=== PATIENT | female | born 1950 | race Caucasian/White ===

== ENCOUNTER 2020-02-18 15:48 | Emergency (ER) | payer MEDICARE ==
[2020-02-18] MEDS ORDERED: SODIUM CHLORIDE 0.9% 1,000 ML IV STA (15:52)
[2020-02-18 15:57] VITALS: RESP 18
--- NOTE | 2020-02-18 16:19 | ED ---
Syncope HPI - General Chief Complaint: Syncope Stated Complaint: Syncope Time Seen by Provider: 02/18/20 15:52 Source: patient, EMS, RN notes reviewed, old records reviewed Mode of arrival: EMS Limitations: no limitations - History of Present Illness Initial Comments: This is a 69-year-old female presents with for syncopal event while at lunch today. There having a 5 day maybe 1 or 2 beers a piece drove [place] and patient after or near the end of lunch became moderately mildly unresponsive no change of color she did not lose her posture tone. She was then transferred by EMS to the hospital and arousable hospitalization asymptomatic with no chest pain shortness breath or abdominal MD Complaint: loss of consciousness -: minutes(s) Prodromal Symptoms: none -: minutes(s) Witnessed: yes - by bystander Injuries Sustained Associated with Event: None Current Symptoms: none Context: at rest Treatments Prior to Arrival: none - Related Data Allergies Allergy/AdvReac Type Severity Reaction Status Date / Time Sulfa (Sulfonamide Allergy Anaphylaxis Verified 02/18/20 15:57 Antibiotics) Review of Systems ROS Statement: Those systems with pertinent positive or pertinent negative responses have been documented in the HPI. ROS Other: All systems not noted in ROS Statement are negative. Past Medical History Past Medical History: Asthma, Hyperlipidemia, Thyroid Disorder History of Any Multi-Drug Resistant Organisms: None Reported Past Surgical History: Appendectomy, Back Surgery, Bladder Surgery, Section, Hysterectomy, Orthopedic Surgery Past Psychological History: No Psychological Hx Reported Smoking Status: Former smoker Past Alcohol Use History: Occasional Past Drug Use History: Marijuana General Exam Limitations: no limitations General appearance: alert, in no apparent distress Head exam: Present: atraumatic, normocephalic, normal inspection Eye exam: Present: normal appearance, PERRL, EOMI. Absent: scleral icterus, conjunctival injection, periorbital swelling ENT exam: Present: normal exam, mucous membranes moist Neck exam: Present: normal inspection. Absent: tenderness, meningismus, lym phadenopathy Respiratory exam: Present: normal lung sounds bilaterally. Absent: respiratory distress, wheezes, rales, rhonchi, stridor Cardiovascular Exam: Present: regular rate, normal rhythm, normal heart sounds. Absent: systolic murmur, diastolic murmur, rubs, gallop, clicks GI/Abdominal exam: Present: soft, normal bowel sounds. Absent: distended, tenderness, guarding, rebound, rigid Extremities exam: Present: normal inspection, full ROM, normal capillary refill. Absent: tenderness, pedal edema, joint swelling, calf tenderness Back exam: Present: normal inspection Neurological exam: Present: alert, oriented X3, CN II-XII intact Psychiatric exam: Present: normal affect, normal mood Skin exam: Present: warm, dry, intact, normal color. Absent: rash Course Vital Signs 02/18/20 02/18/20 15:51 18:21 Temperature 97.6 F Pulse Rate 72 70 Respiratory 18 18 Rate Blood Pressure 117/62 139/70 O2 Sat by Pulse 100 97 Oximetry - Reevaluation(s) Reevaluation #1: 02/18/20 19:22 Medical records reviewed Reevaluation #2: 02/18/20 19:22 Patient has no recurrent syncopal episodes here in the ER remains a symptomatically throughout stay with no headache chest pain shortness of breath or abdominal pain EKG Findings - EKG Comments: EKG Findings:: EKG is sinus rhythm 71. UT 164 QRS 471 Qtc 471 Medical Decision Making - Medical Decision Making This is a 69-year-old female of a near syncopal event third time ALLERGY symptoms happened prior intervention did have prolonged hospital stay with testing, a symptomatically on arrival to ER patient will be discharged home - Lab Data Result diagrams: 02/18/20 16:32 02/18/20 16:32 Lab Results 02/18/20 02/18/20 02/18/20 Range/Units 16:32 16:32 16:32 WBC 5.4 (3.8-10.6) k/uL RBC 4.21 (3.80-5.40) m/uL Hgb 13.0 (11.4-16.0) gm/dL Hct 40.1 (34.0-46.0) % MCV 95.3 (80.0-100.0) fL MCH 30.9 (25.0-35.0) pg MCHC 32.4 (31.0-37.0) g/dL RDW 12.5 (11.5-15.5) % Plt Count 127 L (150-450) k/uL Neutrophils % 63 % Lymphocytes % 25 % Monocytes % 6 % Eosinophils % 3 % Basophils % 1 % Neutrophils # 3.4 (1.3-7.7) k/uL Lymphocytes # 1.4 (1.0-4.8) k/uL Monocytes # 0.4 (0-1.0) k/uL Eosinophils # 0.1 (0-0.7) k/uL Basophils # 0.0 (0-0.2) k/uL Sodium 135 L (137-145) mmol/L Potassium 4.3 (3.5-5.1) mmol/L Chloride 103 (98-107) mmol/L Carbon Dioxide 23 (22-30) mmol/L Anion Gap 9 mmol/L BUN 23 H (7-17) mg/dL Creatinine 0.88 (0.52-1.04) mg/dL Est GFR (CKD-EPI)AfAm 79 (>60 ml/min/1.73 sqM) Est GFR (CKD-EPI)NonAf 69 (>60 ml/min/1.73 sqM) Glucose 99 (74-99) mg/dL Plasma Lactic Acid Stephon 2.1 H* (0.7-2.0) mmol/L Calcium 8.8 (8.4-10.2) mg/dL Phosphorus 4.4 (2.5-4.5) mg/dL Magnesium 1.8 (1.6-2.3) mg/dL Total Bilirubin 0.6 (0.2-1.3) mg/dL AST 42 H (14-36) U/L ALT 18 (4-34) U/L Alkaline Phosphatase 54 (38-126) U/L Creatine Kinase 80 (30-135) U/L Troponin I (0.000-0.034) ng/mL NT-Pro-B Natriuret Pep pg/mL Total Protein 6.3 (6.3-8.2) g/dL Albumin 3.9 (3.5-5.0) g/dL 02/18/20 02/18/20 Range/Units 16:32 16:32 WBC (3.8-10.6) k/uL RBC (3.80-5.40) m/uL Hgb (11.4-16.0) gm/dL Hct (34.0-46.0) % MCV (80.0-100.0) fL MCH (25.0-35.0) pg MCHC (31.0-37.0) g/dL RDW (11.5-15.5) % Plt Count (150-450) k/uL Neutrophils % % Lymphocytes % % Monocytes % % Eosinophils % % Basophils % % Neutrophils # (1.3-7.7) k/uL Lymphocytes # (1.0-4.8) k/uL Monocytes # (0-1.0) k/uL Eosinophils # (0-0.7) k/uL Basophils # (0-0.2) k/uL Sodium (137-145) mmol/L Potassium (3.5-5.1) mmol/L Chloride (98-107) mmol/L Carbon Dioxide (22-30) mmol/L Anion Gap mmol/L BUN (7-17) mg/dL Creatinine (0.52-1.04) mg/dL Est GFR (CKD-EPI)AfAm (>60 ml/min/1.73 sqM) Est GFR (CKD-EPI)NonAf (>60 ml/min/1.73 sqM) Glucose (74-99) mg/dL Plasma Lactic Acid Stephon (0.7-2.0) mmol/L Calcium (8.4-10.2) mg/dL Phosphorus (2.5-4.5) mg/dL Magnesium (1.6-2.3) mg/dL Total Bilirubin (0.2-1.3) mg/dL AST (14-36) U/L ALT (4-34) U/L Alkaline Phosphatase (38-126) U/L Creatine Kinase (30-135) U/L Troponin I <0.012 (0.000-0.034) ng/mL NT-Pro-B Natriuret Pep 129 pg/mL Total Protein (6.3-8.2) g/dL Albumin (3.5-5.0) g/dL Disposition Clinical Impression: Vasovagal syncope Disposition: HOME SELF-CARE Condition: Good Instructions (If sedation given, give patient instructions): Syncope in Older Adults (ED) Is patient prescribed a controlled substance at d/c from ED?: No Referrals: Cullen Cormier MD [Primary Care Provider] - 1-2 days
--- NOTE | 2020-02-18 16:47 | XR ---
EXAMINATION TYPE: XR chest 2V DATE OF EXAM: 02/18/2020 COMPARISON: NONE HISTORY: Weakness TECHNIQUE: 2 views FINDINGS: There is some linear density at the left lung base. Heart is normal. There are no hilar mas ses. Mediastinum is normal. Bony thorax is intact. IMPRESSION: There is some mild atelectasis left lung base. Normal heart.
[2020-02-18 17:17] LABS: Basophils % (A) 1 %; Eosinophils # (A) 0.1 k/uL (0-0.7); Eosinophils % (A) 3 %; HCT 40.1 % (34.0-46.0); Lymphocytes # (A) 1.4 k/uL (1.0-4.8); Lymphocytes % (A) 25 %; MCH 30.9 pg (25.0-35.0); MCHC 32.4 g/dL (31.0-37.0); MCV 95.3 fL (80.0-100.0); Mean Platelet Volume 8.4; Monocytes # (A) 0.4 k/uL (0-1.0); Monocytes % (A) 6 %; Neutrophils # (A) 3.4 k/uL (1.3-7.7); Neutrophils % (A) 63 %; Platelet Count 127 k/uL (150-450); RBC 4.21 m/uL (3.80-5.40); RDW 12.5 % (11.5-15.5); WBC 5.4 k/uL (3.8-10.6)
[2020-02-18 17:19] LABS: Albumin 3.9 g/dL (3.5-5.0); Calcium 8.8 mg/dL (8.4-10.2); Magnesium 1.8 mg/dL (1.6-2.3); Phosphorus 4.4 mg/dL (2.5-4.5); Potassium 4.3 mmol/L (3.5-5.1); Total Bilirubin 0.6 mg/dL (0.2-1.3); Total Protein 6.3 g/dL (6.3-8.2)
[2020-02-18 18:22] VITALS: BP 139/70; PULSE 70
[2020-02-18 19:23] VITALS: TEMP 98.3
== END 2020-02-18 19:23 | disposition home or self-care (01) ==
LOC: EC 15:48
DX: R55 Syncope and collapse (principal); Z88.2 Allergy status to sulfonamides; Z87.891 Personal history of nicotine dependence
CPT/HCPCS: 36415; 71046; 80053; 82550; 83605; 83735; 83880; 84100; 84484; 85025; 93005; 99285

== ENCOUNTER → 2024-04-05 | Outpatient (CLI) | payer MEDICARE ==
[2024-04-05 13:26] LABS: Partial Thromboplastin Time 21.7 sec (22.0-30.0); Prothrombin Time 10.6 sec (10.0-12.5)
[2024-04-05 20:24] LABS: HCT 45.7 % (37.2-46.3); HGB 14.6 g/dL (12.0-15.0); MCH 30.9 pg (27.0-32.0); MCHC 31.9 g/dL (32.0-37.0); MCV 96.8 FL (80.0-97.0); Mean Platelet Volume 10.5 FL (9.5-12.2); NRBC Per 100 WBC 0 X 10*3/uL (0.00-0.01); Platelet Count 349 X 10*3/uL (140-440); RBC 4.72 X 10*6/uL (4.10-5.20); RDW 12.9 % (11.5-14.5); WBC 10.73 X 10*3/uL (4.50-10.00)
[2024-04-05 22:21] LABS: ALT 23 U/L (8-44); AST 17 U/L (13-35); Albumin 4.1 g/dL (3.8-4.9); Albumin/Globulin Ratio 1.78 Ratio (1.60-3.17); Alkaline Phosphatase 67 U/L (41-126); BUN/Creat Ratio 26.78 Ratio (12.00-20.00); Blood Urea Nitrogen 24.1 mg/dL (9.0-27.0); Calcium 9.5 mg/dL (8.7-10.3); Carbon Dioxide 25.4 mmol/L (21.6-31.8); Chloride 100 mmol/L (96-109); Globulin 2.3 g/dL (1.6-3.3); Glucose 102 mg/dL (70-110); Potassium 4.3 mmol/L (3.5-5.5); Sodium 138 mmol/L (135-145); Total Bilirubin 0.3 mg/dL (0.3-1.2); Total Protein 6.4 g/dL (6.2-8.2)
== END | disposition home or self-care (01) ==
LOC: LABWHC1 12:03
PROVIDERS: ATTEND Orthopaedic Surgery
DX: Z01.818 Encounter for other preprocedural examination (principal); Z22.322 Carrier or suspected carrier of Methicillin resistant Staphylococcus aureus; M16.11 Unilateral primary osteoarthritis, right hip
CPT/HCPCS: 36415; 80053; 83036; 85027; 85610; 85730; 86850; 86900; 86901; 87070; 93005

== ENCOUNTER 2024-04-13 10:48 | Day surgery (SDC) | payer MEDICARE ==
[2024-04-07 10:10] VITALS: BMI 25.0
[~2024-04-13 10:48] MED LIST: ONDANSETRON 4 MG/2 ML VIAL IVP PRN; TRANEXAMIC 1,000 MG/100ML-NACL 1,000 MG in SALINE 1 100ML.BAG IV PRN; TRANEXAMIC 1,000 MG/100ML-NACL 1,000 MG in SALINE 1 100ML.BAG IVPB PRN
[2024-04-13] MEDS: ACETAMINOPHEN TAB 500 MG TAB PO PRN (11:22)
[2024-04-13] MEDS: DOCUSATE 100 MG CAP PO PRN (11:22)
[2024-04-13] MEDS: oxyCODONE ER 10 MG TAB.ER.12H PO PRN (11:23)
[2024-04-13] MEDS: LACTATED RINGERS 1,000 ML IV SCH (11:45)
[2024-04-13] MEDS: KETOROLAC 15 MG/ML 1 ML VIAL IVP PRN (11:46)
[2024-04-13] MEDS: DEXAMETHASONE SOD PHOSPHATE 10 MG/ML 1 ML VIAL IV PRN (11:46)
[2024-04-13] MEDS: FAMOTIDINE 20 MG/2 ML VIAL IVP PRN (11:46)
[2024-04-13] MEDS: ONDANSETRON 4 MG/2 ML VIAL IVP ONE (11:46)
[2024-04-13] MEDS: DEXAMETHASONE SOD PHOSPHATE 4 MG/ML 1 ML VIAL IV ONE (11:47)
[2024-04-13] MEDS: IV FLUID CONTINUATION 1,000 ML IV ONE (11:55)
[2024-04-13] MEDS: MIDAZOLAM 2 MG/2 ML VIAL IV ONE (12:08)
[2024-04-13] MEDS: fentaNYL (PF) 50 MCG/ML 2 ML AMP IVP STA (12:16)
[2024-04-13] MEDS ORDERED: ROPIVACAINE 5 MG/ML 30 ML VIAL ONE (13:12)
[2024-04-13] MEDS ORDERED: fentaNYL (PF) 50 MCG/ML 2 ML AMP ONE (13:12)
[2024-04-13] MEDS ORDERED: SUCCINYLCHOLINE CHLORIDE 200 MG/10 ML VIAL IV ONE (13:12)
[2024-04-13] MEDS ORDERED: PHENYLEPHRINE 10 MG/ML VIAL ONE (13:12)
[2024-04-13] MEDS ORDERED: PROPOFOL 10 MG/ML 20 ML VIAL IV ONE (13:12)
[2024-04-13] MEDS ORDERED: ePHEDrine 50 MG/ML 1 ML VIAL ONE (13:12)
[2024-04-13] MEDS ORDERED: TRANEXAMIC 1,000 MG/100ML-NACL PREMIX BAG ONE (13:12)
[2024-04-13] MEDS ORDERED: LIDOCAINE 1% INJ 10MG/ML (20 ML MDV) ONE (13:12)
[2024-04-13] MEDS ORDERED: GLYCOPYRROLATE 0.2 MG/ML 2 ML VIAL ONE (13:12)
[2024-04-13] MEDS ORDERED: ROCURONIUM 10 MG/ML (5 ML VIAL) IV ONE (13:12)
[2024-04-13] MEDS ORDERED: NEOSTIGMINE 1 MG/ML 10 ML VIAL ONE (13:12)
[2024-04-13] MEDS ORDERED: MIDAZOLAM 2 MG/2 ML VIAL ONE (13:12)
[2024-04-13] MEDS: ROPIVACAINE/EPI/CLONIDINE/KET 50 ML SYRINGE MISCELLANE PRN (13:53)
[2024-04-13] MEDS: LACTATED RINGERS 1,000 ML IV ONE (15:02)
--- NOTE | 2024-04-13 15:04 | P.OP ---
Date of Procedure: 04/13/24 Preoperative Diagnosis: Severe right hip osteoarthritis Postoperative Diagnosis: Same Procedure(s) Performed: Right direct anterior total hip arthroplasty Implants: 1. Follansbee Trident II Acetabular Cup, Size #50 2. Osmin Insignia Size # 6 Femoral Stem, High Offset 3. Dual Mobility OD 38 mm, ID 28 mm, -2.7 mm neck Anesthesia: GETA, regional Surgeon: Jean Claude Hadley Dental Laboratory Worker #1: Jonathan Lyman Estimated Blood Loss (ml): 300 IV fluids (ml): 800 Pathology: none sent Condition: stable Disposition: PACU Indications for Procedure: I had a long discussion with the patient in the office on the potential risks and complications of an elective total hip replacement through a direct anterior approach. Risks discussed include, but are certainly not limited to, risks from anesthesia, superficial infection requiring local wound care or antibiotics, deep dale-prosthetic joint infection and the treatment required to eradicate infection, intraoperative fracture, postoperative periprosthetic fracture, damage to local blood vessels or nerves particularly the lateral femoral cutaneous nerve, delayed wound healing requiring local wound care or possibly surgical debridement, hip dislocation, leg length discrepancy, soft tissue irritation around the total hip implant such as iliopsoas tendinitis or trochanteric bursitis, wear and osteolysis from the implants, squeaking or audible noises, groin pain, thigh pain, heterotopic ossification, stiffness, aseptic loosening of the implants, dissatisfaction with surgical outcome, need for revision surgery, DVT, PE, swelling of the operative extremity, acute coronary event, stroke, failure to thrive, and possibly loss of life or limb. The patient understands that while these are the most common complications after an elective hip replacement there are certainly other less common complications possible. They were given ample time to ask questions regarding the potential complications of a hip replacement. Following our discussion the patient p rovided their verbal and written consent to go forward with an elective total hip replacement. Description of Procedure: The patient was identified in the preoperative holding area and the correct hip was marked with my initials. I reviewed the procedure and consent with the patient. All of their questions were answered. The patient was then brought back into the operating room by anesthesia. While on the [facility] anesthesia was administered by the anesthesia team. Preoperative antibiotics and tranexamic acid were also given. After the patient was under anesthesia I examined their ankles to determine their preoperative leg length discrepancy. The skin over the anterior aspect of the hip was shaved to remove hair over the site of planned incision. Both feet and ankles were padded with webril and boots for the Hancock were applied. The patient was then carefully transferred onto the Hancock table. A perineal post was immediately placed. The arms were placed on arm holders and were well-padded. Both boots were secured to the spars on the Hancock table. The patient was positioned so that the pelvis was centered over the post. Nonsterile drapes were applied. A timeout was performed identifying the correct patient, operative extremity, and procedure. At this point fluoroscopy was brought in to take preoperative images of the pelvis and operative hip. U sing the standing AP pelvis from the office as a template, a comparable image was obtained with fluoroscopy. A metallic bar was used to create a bi-ischial line for use as a reference to leg length adjustments during the procedure. Global offset was also measured on both the operative and nonoperative leg. Fluoroscopy was then brought out and a pre-scrub using a chlorhexidine scrub brush was performed. The operative limb was then prepped and draped in the standard sterile fashion. An anterior longitudinal incision was made lateral and distal to the ASIS. The skin and subcutaneous tissues were incised sharply. The underlying tensor fascia was identified and incised in its midportion. The fascia was dissected free from the underlying muscle and the muscle belly was retracted. A blunt tipped cobra retractor was placed over the superior neck under the muscle fibers of the gluteus minimus. The deep enveloping fascia of the tensor was incised. The anterior leash of vessels were then identified and cauterized. The fascia between the rectus and the capsule was then incised and the pre-capsular fat was excised. A second Cobra was placed inferior to the neck. The interval between the rectus and iliocapsularis and the hip capsule was developed and a retractor was placed carefully over the anterior rim of the acetabulum. A T-shaped anterior capsulotomy was performed. The superior capsular leaflet was left in place in the inferior capsular flap was excised. The Cobra retractors were placed intracapsularly. We then made a femoral neck osteotomy according to preoperative and intraoperative templating and confirmed the level of the osteotomy using fluoroscopic imaging. The femoral head was removed, passed off to the back table, and sized. The superior capsular flap was excised. Retractors were placed circumferentially exposing the acetabulum. We then circumferentially debrided the acetabulum free of labrum and osteophytes. The pulvinar was removed to fully visualize the cotyloid fossa. We then sequentially reamed to achieve peripheral fit and excellent bleeding subchondral bone. The socket was thoroughly irrigated. The acetabular component was impacted into the appropriate position using fluoroscopy to guide version, inclination, and depth of insertion taking care to have a comparable image of the AP pelvis to the standing image taken in the office. An excellent press-fit was achieved and final position was confirmed using fluoroscopy. The press fit was augmented with bony cancellus dome screws. The liner was then impacted into the socket. Attention was then turned to the femur. The remnant dorsal lateral capsule was excised. The short external rotators were visible and protected. A bone hook was used to confirm appropriate translation of the trochanter away from the acetabulum. The leg was then extended and adducted and the bone hook was used to elevate the femur for broaching. A box osteotome and blunt tipped canal sound was then utilized to gain access to the femoral canal. We then sequentially broached the femur in appropriate anteversion until excellent torsional stability was achieved. The neck cut was brought flush to the trial broach with a calcar planar. A trial neck and head were then placed onto the broach and the hip was atraumatically reduced under direct visualization. External rotation to 90 was performed to assess stability. Fluoroscopy was brought in. An AP and lateral fluoroscopic image of the proximal femur was obtained to assess position and fill of the trial broach. An AP of the pelvis w as then obtained and matched to the preoperative image taken. A bi-ischial bar was then placed and measurements were taken to assess changes in length and offset. The hip was then carefully dislocated, the proximal femur was exposed, and the trial implants were removed. The wound and proximal femur was thoroughly irrigated using sterile saline and pulsatile lavage. The final femoral implant was dispensed and gently tapped into place generating an excellent press-fit. The trunnion was cleansed and the final head was tapped into place to engage the Scales taper. The acetabulum was irrigated and visualized to be free of debris. The hip was carefully reduced. Stability was checked clinically with external rotation to 90 and there was no evidence of instability. Final fluoroscopic images were taken. The wound was then thoroughly irrigated and soaked with a dilute Betadine rinse for 3 minutes. 3 L of sterile saline was irrigated through the wound using pulsatile lavage. Local anesthetic cocktail was injected into the soft tissues around the surgical field. The wound was then closed in layers. A sterile dressing was placed over the surgical incision. The drapes were taken down and the patient was carefully transferred off of the Hancock table. Following removal of the boots the leg lengths felt acceptable. The patient was then taken to recovery room having tolerated the procedure well. Jonathan Lyman PA-C was required as a skilled assistant customer service manager due to the complexity of surgery for patient positioning, draping, exposure, retraction, closure of wound and application of dressing. PLAN: The patient can weight-bear as tolerated on the operative extremity. DVT prophylaxis with aspirin 81 mg twice a day based on preoperative risk stratification. Physical therapy for gait training. Leave surgical dressing in place. Internal medicine for perioperative medical management.
[2024-04-13] MEDS ORDERED: ONDANSETRON 4 MG/2 ML VIAL IVP PRN (15:05)
[2024-04-13] MEDS ORDERED: HYDROmorphone 0.5 MG/0.5 ML SYRINGE IVP PRN ×2 (15:05)
[2024-04-13] MEDS ORDERED: hydrOXYzine pamoate 25 MG CAP PO PRN (15:05)
[2024-04-13] MEDS ORDERED: NALOXONE 0.4 MG/ML 1 ML VIAL IV PRN (15:05)
[2024-04-13] MEDS ORDERED: HYDROcodone/APAP 5-325MG 1 EACH TAB PO PRN (15:05)
[2024-04-13] MEDS ORDERED: MAGNESIUM HYDROXIDE 2,400 MG/30 ML CUP PO PRN (15:05)
--- NOTE | 2024-04-13 15:23 | FL ---
EXAMINATION TYPE: FL guidance operating room, XR Hip Limited RT DATE OF EXAM: 04/13/2024 3:14 PM COMPARISON: Pre Operative Images if available both CT/MRI or plain film CLINICAL INDICATION: Female, 73 years old with history of Rt Hip-Ant; TECHNIQUE: FL guidance operating room, XR Hip Limited RT, multiple fluoroscopic images provided for p rocedure. Total fluoroscopy time: 45.9 seconds Total submitted images to PACS: 9 DAP: 1.1651 mGym2 Gycm2 uGym2 cGycm2 or equivalent. FINDINGS: Fluoroscopic images during internal fixation/arthroplasty demonstrate fixation hardware in appropriat e position. Hardware appears intact. No immediate complication identified. IMPRESSION: 1. No evidence for intraoperative complication. 2. Please see the operative/procedural note for further details. [facility], , 04/13/2024 3:21 PM
[2024-04-13] MEDS: HYDROmorphone 0.5 MG/0.5 ML SYRINGE IVP PRN (15:39)
--- NOTE | 2024-04-13 16:06 | P.ANPRN ---
Procedure Note - Anesthesia - Nerve Block Performed Right Goetz Single Time Out Performed: Yes (1207) Date of Procedure: 04/13/24 Procedure Start Time: 12:08 Procedure Stop Time: 12:12 Location of Patient: PreOp Indication: Acute Post-Operative Pain, Requested by Surgeon Specifically requested for management of pain by DrVimal: Jean Claude Hadley Sedation Type: Sedate with meaningful contact maintained Preparation: Sterile Prep Position: Supine Catheter: None Needle Types: Pajunk Needle Gauge: 21 Ultrasound used to visualize needle placement: Yes Ultrasound used to observe medication spread: Yes Injectate: 0.5% Ropivacaine (see comment for volume) (30cc) Blood Aspirated: No Pain Paresthesia on Injection Noted: No Resistance on Injection: Normal Image Stored and Saved: Yes Events: Uneventful and Well Tolerated
[2024-04-13] MEDS: HYDROcodone/APAP 10-325MG 1 EACH TAB PO PRN (17:28)
[2024-04-13] MEDS: SODIUM CHLORIDE 0.9% 1,000 ML IV SCH (17:29)
--- NOTE | 2024-04-13 17:34 | P.CONS ---
History of Present Illness - Reason for Consult Consult date: 04/13/24 Medical Management Requesting physician: Jean Claude Hadley - History of Present Illness History of Presenting Illness: Patient is a very pleasant 73-year-old female with a past medical history of hypothyroidism, asthma, and osteoarthritis. She is currently admitted under orthopedic surgery team status post elective right total hip arthroplasty secondary to severe right hip osteoarthritis. Surgical procedure was completed by Dr. Hadley. We were consulted for medical management throughout hospitalization. Patient seen and fully evaluated in room 464. She currently reports controlled postoperative pain and denies having any postoperative nausea or vomiting. Patient reports urinating without any difficulties and postoperative period. She denies having any headache, lightheadedness, dizziness, chest pain, palpitations, shortness of breath, or experiencing any numbness or focal weakness. Patient does report feeling sleepy and states she does not really have an appetite, otherwise reports feeling much better than she expected. Review of systems: Pertinent positives and negatives as discussed in HPI, a complete review of systems was performed and all other systems are negative. Physical exam: Vital signs reviewed and stable. General: Nontoxic, no distress and appears stated age. Derm: Skin warm and dry, normal coloration for ethnicity. Head: Atraumatic, normocephalic and symmetric. Eyes: EOM's intact, no lid lag, and anicteric sclera Mouth: no lip lesions, mucus membranes moist Cardiovascular: regular rate and rhythm with normal S1S2, no murmur, positive posterior tibial pulses bilaterally, and cap refill < 2 seconds. Lungs: Respirations even, regular, and unlabored on room air. Lungs CTA bilaterally, no rhonchi, no rales, no wheezing, and no accessory muscle usage. Abdominal: soft, nontender to palpation, no guarding, no appreciable organomegaly Ext:: No gross muscle atrophy, no edema, no contractures. Movement and sensa tion intact. Postoperative dressing in place right hip. Neuro: Speech clear, face symmetrical and CN II-XII grossly intact with no noted focal neuro deficits Psych: Alert and oriented to person, place, time, and situation. Appropriate and pleasant affect. Assessment and Plan of Care: Status post right total hip arthroplasty Management per primary admitting orthopedic surgery team including DVT prophylaxis, pain management, wound/dressing management, weightbearing, and PT/OT. Currently DVT prophylaxis with aspirin 81 mg twice daily. Hypothyroidism Continue levothyroxine 88 mcg daily. Mild persistent asthma, controlled Continue Ventolin inhaler every 6 hours as needed for shortness of breath and/or wheezing. Encourage use of incentive spirometry 10-15 times hourly while awake. Data reviewed: Reviewed operative report. Vital signs reviewed. Blood pressure 102/58, heart rate 70, respiratory rate 17, temp 97.4 F, and SpO2 of 97% on room air. Reviewed preoperative labs. CBC revealed WBC count of 10.73, hemoglobin 14.6, platelet count of 349. BMP unremarkable with exception of a slightly elevated anion gap of 12.60. Hemoglobin A1c was 5.7%. Orders placed for postoperative labs including CBC, BMP, and magnesium. Will follow-up on these results and place additional orders as indicated based upon these findings. Thank you for allowing us to participate in the care of this pleasant patient. Do not hesitate to contact us with questions. Someone can be reached from the [facility] all hours of the day at [phone] or via [email or web address]. Patient was seen independently by Nurse Practitioner. This document was prepared using [employer] dictation software. Please allow for errors in filler block inserter remover while rare they do occur. Cedric Marshall NP rendered care for this patient independently, reviewed the findings and plan as documented in the note above. I did not physically speak w ith or examine the patient on this date. Past Medical History Past Medical History: Asthma, Hyperlipidemia, Thyroid Disorder History of Any Multi-Drug Resistant Organisms: MRSA Year Discovered:: 2008 MDRO Source:: left leg Past Surgical History: Appendectomy, Back Surgery, Bladder Surgery, Section, Hysterectomy, Orthopedic Surgery Additional Past Surgical History / Comment(s): neck and back fusion Past Anesthesia/Blood Transfusion Reactions: No Reported Reaction Past Psychological History: No Psychological Hx Reported Smoking Status: Former smoker Past Alcohol Use History: Rare Past Drug Use History: Marijuana Additional Drug Use History / Comment(s): instructed to refrain from use for 24 hours - Past Family History Mother Family Medical History: Cancer Additional Family Medical History / Comment(s): breast CA Medications and Allergies Home Medications Medication Instructions Recorded Confirmed Type Albuterol Inhaler [Ventolin Hfa 1 - 2 puff INHALATION Q6H PRN 04/07/24 04/13/24 History Inhaler] Levothyroxine Sodium [Synthroid] 88 mcg PO DAILY 04/07/24 04/13/24 History Aspirin 81 mg PO BID #60 tab 04/14/24 Rx Docusate [Colace] 100 mg PO BID #60 capsule 04/14/24 Rx HYDROcodone/APAP 5-325MG [Lagrange 5] 1 - 2 each PO Q6HR PRN #48 tab 04/14/24 Rx Omeprazole 20 mg PO DAILY #30 tab 04/14/24 Rx Ondansetron [Zofran] 4 mg PO Q6HR PRN #30 tab 04/14/24 Rx Allergies Allergy/AdvReac Type Severity Reaction Status Date / Time adhesive tape Allergy Unknown Verified 04/13/24 11:08 Sulfa (Sulfonamide Allergy Anaphylaxis Verified 04/13/24 11:08 Antibiotics) Physical Exam Vitals: Vital Signs Temp Pulse Pulse Resp BP BP Pulse Ox 04/13/24 16:25 76 16 116/54 99 04/13/24 16:10 76 16 109/53 98 04/13/24 15:55 78 16 149/67 94 L 04/13/24 15:40 87 16 143/65 100 04/13/24 15:25 96.9 F L 115 H 14 144/66 99 04/13/24 12:18 70 16 147/67 100 04/13/24 11:14 98.6 F 98 18 180/84 98 Intake and Output 04/13/24 04/13/24 04/13/24 06:59 14:59 22:59 Intake Total 1050 200 Output Total 200 Balance 1050 0 Intake: IV 1050 200 Output: Estimated Blood Loss 200 Other: Weight 69.8 kg 69.8 kg Results CBC & Chem 7: 04/14/24 04:04 04/14/24 04:04
[2024-04-13] MEDS: SENNOSIDES-DOCUSATE SODIUM 1 EACH TAB PO SCH (21:31)
[2024-04-13] MEDS: ASPIRIN 81 MG PO SCH (21:31)
[2024-04-14] MEDS: LEVOTHYROXINE 88 MCG TAB PO SCH (05:47)
--- NOTE | 2024-04-14 08:07 | P.DS ---
Providers Attending physician: Jean Claude Hadley Consults: 04/13/24 15:05 Consult Physician Routine Consulting Provider: Laith Cabrera Consult Reason/Comments: post op medical management Do you want consulting provider notified?: Yes Primary care physician: [facility] Course: Dina is a 73-year-old female patient who presented to preop for scheduled right direct anterior total hip arthroplasty for severe osteoarthritis that failed conservative management. Patient tolerated the procedure well. Patient was transferred to the orthopedic floor. Patient states they got up and walk to the bathroom with walker and assistance last night and did well. Patient's states they have mild pain in their right thigh. The pain is controlled with pain medication. Patient was examined at bedside this morning. Patient was awake alert and able to answer questions. Patient was resting in bed comfortably. On inspection the right hip surgical dressing was clean dry and intact, and free of strikethrough. There is mild swelling in the right thigh. Femoral nerve function was grossly intact. Patient was able to plantarflex and dorsiflex her ankles and toes. Calf is soft. Right foot was well-perfused. Patient will work with physical therapy. Pending physical therapy patient can discharge home with home health care. Assessment: Postop day #1 status post right direct anterior total hip arthroplasty on 04/13/[address] Hadley Plan - Discharge Summary Discharge Rx Participant: No New Discharge Prescriptions: New Aspirin 81 mg PO BID #60 tab Docusate [Colace] 100 mg PO BID #60 capsule HYDROcodone/APAP 5-325MG [[place] 5] 1 - 2 each PO Q6HR PRN #48 tab PRN Reason: Pain Ondansetron [Zofran] 4 mg PO Q6HR PRN #30 tab PRN Reason: Nausea Omeprazole 20 mg PO DAILY #30 tab No Action Levothyroxine Sodium [Synthroid] 88 mcg PO DAILY Albuterol Inhaler [Ventolin Hfa Inhaler] 1 - 2 puff INHALATION Q6H PRN PRN Reason: Dyspnea Discharge Medication List Albuterol Inhaler [Ventolin Hfa Inhaler] 1 - 2 puff INHALATION Q6H PRN 04/07/24 [History] Levothyroxine Sodium [Synthroid] 88 mcg PO DAILY 04/07/24 [History] Aspirin 81 mg PO BID #60 tab 04/14/24 [Rx] Docusate [Colace] 100 mg PO BID #60 capsule 04/14/24 [Rx] HYDROcodone/APAP 5-325MG [[place] 5] 1 - 2 each PO Q6HR PRN #48 tab 04/14/24 [Rx] Omeprazole 20 mg PO DAILY #30 tab 04/14/24 [Rx] Ondansetron [Zofran] 4 mg PO Q6HR PRN #30 tab 04/14/24 [Rx] Follow up Appointment(s)/Referral(s): Jean Claude Hadley MD [Medical Doctor] - 2 Weeks Activity/Diet/Wound Care/Special Instructions: 1. Weight-bear as tolerated on your operative extremity unless instructed otherwise. Use a walker or other assistive device to ambulate. 2. Leave surgical dressing in place. If your dressing becomes saturated with blood, there is drainage, or the dressing becomes loose please contact the office. 3. It is okay to shower with your surgical dressing, but do not submerge in water (no hot tubs, bath's, swimming etc.) 4. Take your blood clot prevention medication as prescribed (aspirin, Eliquis, Xarelto, and Plavix are commonly prescribed medications for blood clot prevention) 5. While taking [place] or Percocet for pain take a stool softener (Ex: Colace) and drink lots of water. 6. Keep all follow-up appointments as scheduled. You will usually be seen in 1-2 weeks following surgery. 7. Please contact the office with any questions or concerns [phone] Discharge Disposition: HOME WITH HOME HEALTH SERVICES
[2024-04-14] MEDS: ALBUTEROL NEBULIZED 2.5 MG/3 ML INHALATION PRN (08:13)
[2024-04-14 08:23] LABS: Basophils # (A) 0.02 X 10*3/uL (0.00-0.10); Basophils % (A) 0.1 %; Eosinophils # (A) 0 X 10*3/uL (0.04-0.35); Eosinophils % (A) 0 %; HCT 32.1 % (37.2-46.3); HGB 10.5 g/dL (12.0-15.0); Lymphocytes # (A) 0.81 X 10*3/uL (0.90-5.00); Lymphocytes % (A) 5.7 %; MCH 31.5 pg (27.0-32.0); MCHC 32.7 g/dL (32.0-37.0); MCV 96.4 FL (80.0-97.0); Mean Platelet Volume 10.4 FL (9.5-12.2); Monocytes # (A) 0.98 X 10*3/uL (0.20-1.00); Monocytes % (A) 6.9 %; NRBC Per 100 WBC 0 X 10*3/uL (0.00-0.01); Neutrophils # (A) 12.29 X 10*3/uL (1.80-7.70); Neutrophils % (A) 86.7 %; Platelet Count 237 X 10*3/uL (140-440); RBC 3.33 X 10*6/uL (4.10-5.20); RDW 13.2 % (11.5-14.5); WBC 14.18 X 10*3/uL (4.50-10.00)
[2024-04-14 08:25] VITALS: BP 104/60; PULSE 70; RESP 17; TEMP 97.4
[2024-04-14 08:40] LABS: Blood Urea Nitrogen 16.4 mg/dL (9.0-27.0); Calcium 8.3 mg/dL (8.7-10.3); Carbon Dioxide 23.1 mmol/L (21.6-31.8); Chloride 103 mmol/L (96-109); Glucose 125 mg/dL (70-110); Magnesium 1.8 mg/dL (1.5-2.4); Potassium 5.2 mmol/L (3.5-5.5); Sodium 134 mmol/L (135-145)
[2024-04-14] MEDS: MELOXICAM 7.5 MG TAB PO SCH (09:48)
[2024-04-14] MEDS: FAMOTIDINE 20 MG TAB PO SCH (09:48)
[2024-04-14] MEDS: MULTIVITAMINS, THERA 1 EACH TAB PO SCH (09:48)
--- NOTE | 2024-04-14 12:44 | P.PN ---
Subjective Progress Note Date: 04/14/24 Hospital course: Patient is a very pleasant 73-year-old female with a past medical history of hypothyroidism, asthma, and osteoarthritis. She is currently admitted under orthopedic surgery team status post elective right total hip arthroplasty secondary to severe right hip osteoarthritis. Surgical procedure was completed by Dr. Hadley. We were consulted for medical management throughout hospitalization. Physical exam: Patient was seen and fully evaluated at bedside. Patient sitting in chair in room just completed working with physical therapy and reports doing well this morning. She states postoperative pain continues to be moderate in nature but controlled with current pain medication regimen. She reports having a decreased appetite since surgery stating not sure if it is from pain medications but d enies having any nausea, vomiting, or any other complaints. She reports urinating without any difficulties. She denies headache, lightheadedness, dizziness, chest pain, palpitations, or experiencing any shortness of breath. Vital signs reviewed and stable. General: Nontoxic, no distress and appears stated age. Derm: Skin warm and dry, normal coloration for ethnicity. Head: Atraumatic, normocephalic and symmetric. Eyes: EOM's intact, no lid lag, and anicteric sclera Mouth: no lip lesions, mucus membranes moist Cardiovascular: regular rate and rhythm with normal S1S2, no murmur, positive posterior tibial pulses bilaterally, and cap refill < 2 seconds. Lungs: Respirations even, regular, and unlabored on room air. Lungs CTA bilaterally, no rhonchi, no rales, no wheezing, and no accessory muscle usage. Abdominal: soft, nontender to palpation, no guarding, no appreciable organomegal y Ext:: No gross muscle atrophy, no edema, no contractures. Movement and sensation intact. Postoperative dressing in place right hip. Neuro: Speech clear, face symmetrical and CN II-XII grossly intact with no noted focal neuro deficits Psych: Alert and oriented to person, place, time, and situation. Appropriate and pleasant affect. Assessment and Plan of Care: Status post right total hip arthroplasty Management per primary admitting orthopedic surgery team including DVT prophylaxis, pain management, wound/dressing management, weightbearing, and PT/OT. Currently DVT prophylaxis with aspirin 81 mg twice daily. Acute postoperative blood loss anemia Preoperative hemoglobin was 14.6 and postoperative hemoglobin is 10.5. This is a stable and expected finding, no signs of active bleeding. No need for transfusion or further intervention at this time. Leukocytosis -Believed to be reactive secondary to surgical procedure, no signs of infection. Hypothyroidism Continue levothyroxine 88 mcg daily. Mild persistent asthma, controlled Continue Ventolin inhaler every 6 hours as needed for shortness of breath and/or wheezing. Encourage use of incentive spirometry 10-15 times hourly while awake. Data reviewed: Vital signs reviewed. Blood pressure 104/60, heart rate 70, respiratory rate 17, temp 97.4 F, and SpO2 of 97% on room air. Postoperative labs reviewed. Patient with acute postoperative blood loss anemia with hemoglobin of 10.5 and preoperative hemoglobin of 14.6. CBC also showing mild leukocytosis with WBC count of 14.18. BMP showing mild hyponatremia with sodium of 134, glucose 125, and magnesium 1.8. Thank you for allowing us to participate in the care of this pleasant patient. Do not hesitate to contact us with questions. [facility] can be [facility] all hours of the day at [phone] or via [employer]. Patient was seen independently by Nurse Practitioner. This document was prepared using [employer] dictation software. Please allow for errors in steam pan sponger while rare they do occur. Cedric Marshall, [employer] rendered care for this patient independently, reviewed the findings and plan as documented in the note above. I did not physically speak with or examine the patient on this date. Objective - Vital Signs Vital signs: Vital Signs Temp 97.4 F L 04/14/24 08:11 Pulse 64 04/14/24 08:21 Resp 17 04/14/24 08:11 BP 104/60 04/14/24 08:11 Pulse Ox 97 04/14/24 08:11 FiO2 Intake & Output 04/13/24 04/14/24 04/14/24 18:59 06:59 18:59 Intake Total 1250 Output Total 200 Balance 1050 Weight 69.8 kg Intake: IV 1250 Output: Estimated Blood Loss 200 Other: Voiding Method Toilet # Voids 1 2 - Labs CBC & Chem 7: 04/14/24 04:04 04/14/24 04:04 Labs: Abnormal Lab Results - Last 24 Hours (Table) 04/14/24 04/14/24 Range/Units 04:04 04:04 WBC 14.18 H (4.50-10.00) X 10*3/uL RBC 3.33 L (4.10-5.20) X 10*6/uL Hgb 10.5 L (12.0-15.0) g/dL Hct 32.1 L (37.2-46.3) % Immature Gran # 0.08 H (0.00-0.04) X 10*3/uL Neutrophils # 12.29 H (1.80-7.70) X 10*3/uL Lymphocytes # 0.81 L (0.90-5.00) X 10*3/uL Eosinophils # 0 L (0.04-0.35) X 10*3/uL Sodium 134 L (135-145) mmol/L BUN/Creatinine Ratio 20.50 H (12.00-20.00) Ratio Glucose 125 H (70-110) mg/dL Calcium 8.3 L (8.7-10.3) mg/dL
== END 2024-04-14 12:20 | disposition home health service (06) ==
LOC: OR 10:48 → 4SSUR 15:19 → OR 04-14 12:20
PROVIDERS: ATTEND Orthopaedic Surgery
DX: M16.11 Unilateral primary osteoarthritis, right hip (principal); E03.9 Hypothyroidism, unspecified; E78.00 Pure hypercholesterolemia, unspecified; G47.00 Insomnia, unspecified; J45.40 Moderate persistent asthma, uncomplicated; Z79.890 Hormone replacement therapy; Z79.899 Other long term (current) drug therapy; Z88.2 Allergy status to sulfonamides; Z88.1 Allergy status to other antibiotic agents; Z87.891 Personal history of nicotine dependence; Z80.3 Family history of malignant neoplasm of breast
CPT/HCPCS: 27130; 94640; 97161; 64999; 80048; 83735; 85025; 73501; C1776; J2250; J0330; J1100; J2710; J0690 ×2; J2405; J2003; J3010; J3490; J2795; J1885; J2704; J1171; J2371; J1596; 64447

== ENCOUNTER → 2024-08-08 | Outpatient (CLI) | payer MEDICARE | END | disposition home or self-care (01) | LOC: LABWHC1 11:48 | PROVIDERS: ATTEND Orthopaedic Surgery | DX: M25.551 Pain in right hip (principal); Z96.641 Presence of right artificial hip joint; Z47.1 Aftercare following joint replacement surgery | CPT/HCPCS: 36415; 85379; 85652; 86140 ==